=== PATIENT | female | born 1985 | race Caucasian/White ===

== ENCOUNTER 2017-01-03 12:38 | Inpatient (IN) | payer OTHER ==
[2017-01-03 13:04] VITALS: BMI 22.4
--- NOTE | 2017-01-03 14:42 | HP ---
CIWA Score - CIWA Score Nausea/Vomitin Muscle Tremors: 2 Anxiety: 3 Agitation: 3 Paroxysmal Sweats: 1-Minimal Palms Moist Orientation: 0-Oriented Tacttile Disturbances: 0-None Auditory Disturbances: 0-None Visual Disturbances: 3-Moderate Sensitivity Headache: 2-Mild CIWA-Ar Total Score: 17 Admission ROS S - HPI Chief Complaint: "My drinking and drugging have just spun out of control the last few days. I need to get my life back under control." Pt. is here to Detox from alcohol. Allergies/Adverse Reactions: Allergies Allergy/AdvReac Type Severity Reaction Status Date / Time No Known Allergies Allergy Verified 01/03/17 13:30 History of Present Illness: Pt. is a 31 YO female here to Detox from alcohol. This is pt.'s first Detox admission at [facility]. Pt.had a previous Detox admission at [facility] ( [facility] [place] and a Rehab admission at [facility] both earlier this year. Exam Limitations: No Limitations - Ebola screening Have you traveled outside of the country in the last 21 days: No Have you had contact with anyone from an Ebola affected area: No Have you been sick,other than usual withdrawal symptoms: No Do you have a fever: No - Review of Systems Constitutional: Loss of Appetite, Malaise, Night Sweats EENT: reports: Nose Congestion, Sinus Pressure Respiratory: reports: No Symptoms reported Cardiac: reports: Chest Pain (Patient was evaluated in [facility] ER last night for chest pain. Patient reports that cardiac abnormalities were found during ER evlaution. PATIENT DENIES CURRENT CHEST PAIN.) GI: reports: Diarrhea, Poor Appetite, Indigestion : reports: No Symptoms Reported Musculoskeletal: reports: No Symptoms Reported Integumentary: reports: No Symptoms Reported Neuro: reports: Tremors Endocrine: reports: No Symptoms Reported Hematology: reports: No Symptoms Reported Psychiatric: reports: Judgement Intact, Mood/Affect Appropiate, Orientated x3, Anxious, Depressed (In past, has had both medication and verbal therapy in past. No treatment currently.) Other Systems: Reviewed and Negative Patient History - Patient Medical History Hx Anemia: No Hx Asthma: No Hx Chronic Obstructive Pulmonary Disease (COPD): No Hx Cancer: No Hx Cardiac Disorders: No Hx Congestive Heart Failure: No Hx Hypertension: No Hx Hypercholesterolemia: No Hx Pacemaker: No HX Cerebrovascular Accident: No Hx Seizures: No Hx Dementia: No Hx Diabetes: No Hx Gastrointestinal Disorders: No Hx Liver Disease: No Hx Genitourinary Disorders: No Hx Sexually Transmitted Disorders: No Hx Renal Disease (ESRD): No Hx Thyroid Disease: No Hx Human Immunodeficiency Virus (HIV): No (Last Tested approx. 6 months ago: NEGATIVE.) Hx Hepatitis C: No (Last Tested approx. 6 months ago: NEGATIVE.) Hx Depression: Yes (Therapy, meds. in past, None currently.) Hx Suicide Attempt: No (PATIENT DENIES CURRENT SI / HI.) Hx Bipolar Disorder: No Hx Schizophrenia: No Other Medical History: DENIES. - Patient Surgical History Past Surgical History: No Hx Neurologic Surgery: No Hx Cataract Extraction: No Hx Cardiac Surgery: No Hx Lung Surgery: No Hx Breast Surgery: No Hx Breast Biopsy: No Hx Abdominal Surgery: No Hx Appendectomy: No Hx Cholecystectomy: No Hx Genitourinary Surgery: No Hx Section: No Hx Orthopedic Surgery: No Hx Hysterectomy: No Anesthesia Reaction: No - PPD History Previous Implant?: Yes Documented Results: Negative w/o proof Implanted On Prior R Admission?: No PPD to be Administered?: No - Reproductive History Patient is a Female of Child Bearing Age (11 -55 yrs old): Yes Last Menstrual Period: 12/27/16 Patient : No - Smoking Cessation Smoking history: Former smoker Have you smoked in the past 12 months: Yes Aproximately how many cigarettes per day: 1 If you are a former smoker, when did you quit?: 3 months ago Cigars Per Day: 0 Hx Chewing Tobacco Use: No Initiated information on smoking cessation: Yes 'Breaking Loose' booklet given: 01/03/17 (GIVEN ON UNIT. ) - Substance & Tx. History Hx Alcohol Use: Yes Hx Substance Use: Yes Substance Use Type: Alcohol, Cocaine Hx Substance Use Treatment: Yes (1 Previous Detox admission at [facility] , 1 Rehab admission, [place], [place].) - Substances Abused Alcohol Route: Oral Frequency: Daily Amount used: 1 QT BOURBON Age of first use: 17 Date of Last Use: 01/02/17 Cocaine Route: Inhalation Frequency: Daily Amount used: $200 Age of first use: 19 Date of Last Use: 01/03/17 Family Disease History - Family Disease History Family Disease History: Diabetes: Grandparent Admission Physical Exam [facility] - Vital Signs Vital Signs: Vital Signs - 24 hr 01/03/17 12:57 Temperature 98.7 F Pulse Rate 71 Respiratory 20 Rate Blood Pressure 130/77 - Physical General Appearance: Yes: No Apparent Distress, Nourished, Appropriately Dressed , Tremorous, Anxious HEENTM: Yes: Hearing grossly Normal, Normocephalic, Normal Voice, QASIM, Pharynx Normal Respiratory: Yes: Chest Non-Tender, Lungs Clear, No Respiratory Distress, No Accessory Muscle Use Neck: Yes: No masses,lesions,Nodules, Supple, Trachea in good position Breast: Yes: Breast Exam Deferred Cardiology: Yes: Regular Rhythm, Regular Rate, S1, S2 Abdominal: Yes: Normal Bowel Sounds, Non Tender, Flat, Soft Genitourinary: Yes: Within Normal Limits Back: Yes: Normal Inspection Musculoskeletal: Yes: full range of Motion, Gait Steady Extremities: Yes: Normal Range of Motion, Non-Tender, Tremors Neurological: Yes: Fully Oriented, Alert, Normal Mood/Affect, Normal Response Integumentary: Yes: Normal Color, Dry, Warm Lymphatic: Yes: Within Normal Limits - Diagnostic (1) Alcohol dependence with uncomplicated withdrawal Current Visit: Yes Status: Acute (2) Cocaine dependence, uncomplicated Current Visit: Yes Status: Acute (3) Nicotine dependence Current Visit: Yes Status: Chronic Qualifiers: Nicotine product type: cigarettes Substance use status: uncomplicated Qualified Code(s): F17.210 - Nicotine dependence, cigarettes, uncomplicated (4) History of depression Current Visit: Yes Status: Chronic Cleared for Admission [facility] - Detox or Rehab [facility] Level of Care: Medically Managed Detox Regimen/Protocol: Librium [facility] Breath Alcohol Content Breath Alcohol Content: 0 Urine Pregancy Test - Result Urine Test Results: Negative- NO Line Present Urine Drug Screen - Results Drug Screen Negative: No Urine Drug Screen Results: BLANCA-Cocaine
[2017-01-03] MEDS ORDERED: hydrOXYzine PAMOATE 50 MG CAPSULE (FP) PO PRN (15:36)
[2017-01-03] MEDS ORDERED: MAGNESIUM HYDROX 2400MG/30ML ORAL SUSPENSION 30 ML CUP PO PRN (15:36)
[2017-01-03] MEDS ORDERED: LOPERAMIDE HCL 2 MG CAPSULE PO PRN (15:36)
[2017-01-03] MEDS ORDERED: MENTHOL/PHENOL 1 EACH UD MM PRN (15:36)
[2017-01-03] MEDS ORDERED: P-EPHED 60MG/TRIPROLIDI 2.5MG TABLET PO PRN (15:36)
[2017-01-03] MEDS ORDERED: diphenhydrAMINE HCL 50 MG CAPSULE PO PRN (15:36)
[2017-01-03] MEDS ORDERED: MAGNESIUM CITRATE 300 ML BOTTLE PO PRN (15:36)
[2017-01-03] MEDS ORDERED: NICOTINE POLACRILEX 2 MG GUM BUC PRN (15:36)
[2017-01-03] MEDS ORDERED: chlordiazePOXIDE HCL 25 MG CAPSULE PO PRN (15:36)
[2017-01-03] MEDS ORDERED: MAG HYDROX/AL HYDROX/SIMETH 30 ML UNIT-DOSE CUP PO PRN (15:36)
[2017-01-03] MEDS ORDERED: IBUPROFEN 400 MG TABLET (FP) PO PRN (15:36)
[2017-01-03] MEDS ORDERED: guaiFENesin/D-METHORPHAN HB 10 ML UNIT-DOSE CUPS PO PRN (15:36)
[2017-01-03] MEDS ORDERED: ACETAMINOPHEN 325 MG TABLET (FP) PO PRN (15:36)
[2017-01-03] MEDS ORDERED: chlordiazePOXIDE HCL 25 MG CAPSULE PO ONE (15:47)
[2017-01-03] MEDS: chlordiazePOXIDE HCL 25 MG CAPSULE PO SCH ×2 (17:30→22:12)
[2017-01-03] MEDS: THIAMINE HCL 100 MG TABLET (FP) PO SCH (22:12)
[2017-01-03 22:40] LABS: URINE APPEARANCE CLEAR; URINE BILIRUBIN NEGATIVE (NEGATIVE); URINE BLOOD NEGATIVE (NEGATIVE); URINE COLOR YELLOW; URINE GLUCOSE (UA) NEGATIVE (NEGATIVE); URINE KETONE NEGATIVE (NEGATIVE); URINE LEUK ESTERASE NEGATIVE (NEGATIVE); URINE NITRITE NEGATIVE (NEGATIVE); URINE PROTEIN NEGATIVE (NEGATIVE); URINE UROBILINOGEN NEGATIVE mg/dL (0.2-1.0)
[2017-01-04] MEDS: chlordiazePOXIDE HCL 25 MG CAPSULE PO SCH ×4 (05:13→22:07)
--- NOTE | 2017-01-04 08:09 | CONSULT ---
[facility] Psychiatric Consult - Data Date of interview: 01/04/17 Admission source: [facility] Identifying data: This is 31 years old female with history of depression , with no history od psychiatric hospitalizations, iontoxicated with: Alcohol, Cocaine and Nicotine Substance Abuse History: - Smoking Cessation. Smoking history: Former smoker. Have you smoked in the past 12 months: Yes. Aproximately how many cigarettes per day: 1. If you are a former smoker, when did you quit?: 3 months ago. Cigars Per Day: 0. Hx Chewing Tobacco Use: No. Initiated information on smoking cessation: Yes. 'Breaking Loose' booklet given: 01/03/17 (GIVEN ON UNIT. ). - Substance & Tx. History. Hx Alcohol Use: Yes. Hx Substance Use: Yes. Substance Use Type: Alcohol, Cocaine. Hx Substance Use Treatment: Yes (1 Previous Detox admission at [facility], 1 Rehab admission, [place], [place] - Substances Abused. Alcohol. Route: Oral. Frequency: Daily. Amount used: 1 QT BOURBON. Age of first use: 17. Date of Last Use: 01/02/17. Cocaine. Route: Inhalation. Frequency: Daily. Amount used: $200. Age of first use: 19. Date of Last Use: 01/03/17 Medical History: Denies significant medical problem Psychiatric History: Elton reports history of Depression, reports taking prior to admission: Zoloft 100mg poqd. Gabapentin 300mg pop bid Physical/Sexual Abuse/Trauma History: Denies Additional Comment: Zoloft 100mg poqd. Gabapentin 300mg pop bid Mental Status Exam - Mental Status Exam Alert and Oriented to: Person Cognitive Function: Fair Patient Appearance: Unkempt Mood: Sad Affect: Flat Patient Behavior: Sedated Speech Pattern: Delayed Voice Loudness: Mildly Soft/Quiet Thought Process: Circumstantial Thought Disorder: Being Controlled Hallucinations: Denies Suicidal Ideation: Denies Homicidal Ideation: Denies Insight/Judgement: Fair Sleep: Difficulty falling asleep Appetite: Fair Muscle strength/Tone: Mild Hypotonicity Gait/Station: Shuffling Additional Comments: Zoloft 100mg poqd. Gabapentin 300mg pop bid Psychiatric Findings - Problem List ([place] 1, 2,3) (1) Alcohol dependence with uncomplicated withdrawal Current Visit: Yes Status: Acute (2) Cocaine dependence, uncomplicated Current Visit: Yes Status: Acute (3) History of depression Current Visit: Yes Status: Chronic (4) Nicotine dependence Current Visit: Yes Status: Chronic Qualifiers: Nicotine product type: cigarettes Substance use status: uncomplicated Qualified Code(s): F17.210 - Nicotine dependence, cigarettes, uncomplicated (5) Drug-induced mood disorder Current Visit: Yes Status: Acute - Initial Treatment Plan Initial Treatment Plan: Zoloft 100mg poqd. Gabapentin 300mg pop bid
--- NOTE | 2017-01-04 09:37 | EKG ---
Test Reason : Blood Pressure : / mmHG Vent. Rate : 056 BPM Atrial Rate : 056 BPM P-R Int : 158 ms QRS Dur : 092 ms QT Int : 444 ms P-R-T Axes : 070 068 046 degrees QTc Int : 428 ms SINUS BRADYCARDIA POSSIBLE LEFT ATRIAL ENLARGEMENT INCOMPLETE RIGHT BUNDLE BRANCH BLOCK BORDERLINE ECG NO PREVIOUS ECGS AVAILABLE Confirmed by RAKEL BENAVIDEZ MD ([id number]) on 01/04/2017 9:37:30 AM Referred By: Confirmed By:RAKEL BENAVIDEZ MD
[2017-01-04 09:42] LABS: MCH 31.3 pg (25.7-33.7); MCHC 33.2 g/dl (32.0-36.0); MEAN CELL VOLUME 94.4 fl (80-96); MEAN PLT VOLUME 8.6 fl (7.5-11.1); PLATELET COUNT 302 K/MM3 (134-434); RDW 13.7 % (11.6-15.6); WHITE BLOOD COUNT 5.7 K/mm3 (4.0-10.0)
[2017-01-04 09:52] LABS: ALK PHOS 79 U/L (45-117); ANION GAP 7 (8-16); BILIRUBIN,TOTAL 0.7 mg/dL (0.2-1.0); CO2 28 mmol/L (21-32); CREATININE 0.8 mg/dL (0.55-1.02); GLUCOSE,RANDOM 123 mg/dL (74-106); SGOT/AST 45 U/L (15-37); SGPT/ALT 67 U/L (12-78)
[2017-01-04] MEDS: PRENATAL VITAMINS W/ FOLIC ACID TABLET (FP) PO SCH (10:28)
[2017-01-04] MEDS: LORATADINE 10 MG TABLET PO SCH (10:28)
[2017-01-04] MEDS: SERTRALINE HCL 50 MG TABLET (FP) PO SCH (10:30)
[2017-01-04] MEDS: GABAPENTIN 300 MG CAPSULE (FP) PO SCH ×2 (10:30→22:07)
[2017-01-04] MEDS: THIAMINE HCL 100 MG TABLET (FP) PO SCH (22:07)
[2017-01-05] MEDS: chlordiazePOXIDE HCL 25 MG CAPSULE PO SCH ×2 (05:30→10:10)
--- NOTE | 2017-01-05 09:16 | PN ---
S CIWA - CIWA Score Nausea/Vomitin Muscle Tremors: 4-Moderate,w/Arms Extend Anxiety: 4-Mod. Anxious/Guarded Agitation: 4-Moderately Restless Paroxysmal Sweats: 3 Orientation: 0-Oriented Tacttile Disturbances: 1-Very Mild Itch/Numbness Auditory Disturbances: 0-None Visual Disturbances: 0-None Headache: 1-Very Mild CIWA-Ar Total Score: 20 BHS Progress Note (SOAP) Subjective: nausea, sweats, interrupted sleep, anxiety, tremors Objective: Vital Signs - 24 hr 01/04/17 01/04/17 01/04/17 10:00 14:07 18:10 Temperature 97.9 F 97.5 F L 98.1 F Pulse Rate 70 70 79 Respiratory 18 18 18 Rate Blood Pressure 99/52 109/67 101/65 01/04/17 01/05/17 01/05/17 23:00 00:30 03:30 Temperature 97.5 F L Pulse Rate 69 Respiratory 18 18 18 Rate Blood Pressure 100/53 01/05/17 06:40 Temperature 96.8 F L Pulse Rate 54 L Respiratory 16 Rate Blood Pressure 101/57 Laboratory Tests 01/03/17 01/04/17 01/04/17 21:15 06:00 06:00 WBC 5.7 RBC 4.00 Hgb 12.5 Hct 37.8 MCV 94.4 MCH 31.3 MCHC 33.2 RDW 13.7 Plt Count 302 MPV 8.6 Sodium 139 Potassium 4.3 Chloride 104 Carbon Dioxide 28 Anion Gap 7 L BUN 17 Creatinine 0.8 Creat Clearance w eGFR > 60 Random Glucose 123 H Calcium 9.0 Total Bilirubin 0.7 AST 45 H ALT 67 Alkaline Phosphatase 79 Total Protein 7.0 Albumin 4.0 Urine Color Yellow Urine Appearance Clear Urine pH 7.0 Ur Specific [place] 1.020 Urine Protein Negative Urine Glucose (UA) Negative Urine Ketones Negative Urine Blood Negative Urine Nitrite Negative Urine Bilirubin Negative Urine Urobilinogen Negative RPR Titer 01/04/17 06:00 WBC RBC Hgb Hct MCV MCH MCHC RDW Plt Count MPV Sodium Potassium Chloride Carbon Dioxide Anion Gap BUN Creatinine Creat Clearance w eGFR Random Glucose Calcium Total Bilirubin AST ALT Alkaline Phosphatase Total Protein Albumin Urine Color Urine Appearance Urine pH Ur Specific [place] Urine Protein Urine Glucose (UA) Urine Ketones Urine Blood Urine Nitrite Urine Bilirubin Urine Urobilinogen RPR Titer Nonreactive Assessment: withdrawal sx Plan: cont detox, fluids, encourage ambulation
--- NOTE | 2017-01-05 09:19 | PN ---
S CIWA - CIWA Score Nausea/Vomitin Muscle Tremors: 3 Anxiety: 4-Mod. Anxious/Guarded Agitation: 4-Moderately Restless Paroxysmal Sweats: 3 Orientation: 0-Oriented Tacttile Disturbances: 1-Very Mild Itch/Numbness Auditory Disturbances: 0-None Visual Disturbances: 0-None Headache: 1-Very Mild CIWA-Ar Total Score: 19 BHS Progress Note (SOAP) Subjective: nausea, sweats, interrupted sleep, anxiety, tremors Objective: 01/05/17 09:17 Vital Signs - 24 hr 01/04/17 01/04/17 01/04/17 10:00 14:07 18:10 Temperature 97.9 F 97.5 F L 98.1 F Pulse Rate 70 70 79 Respiratory 18 18 18 Rate Blood Pressure 99/52 109/67 101/65 01/04/17 01/05/17 01/05/17 23:00 00:30 03:30 Temperature 97.5 F L Pulse Rate 69 Respiratory 18 18 18 Rate Blood Pressure 100/53 01/05/17 06:40 Temperature 96.8 F L Pulse Rate 54 L Respiratory 16 Rate Blood Pressure 101/57 Laboratory Tests 01/03/17 01/04/17 01/04/17 21:15 06:00 06:00 WBC 5.7 RBC 4.00 Hgb 12.5 Hct 37.8 MCV 94.4 MCH 31.3 MCHC 33.2 RDW 13.7 Plt Count 302 MPV 8.6 Sodium 139 Potassium 4.3 Chloride 104 Carbon Dioxide 28 Anion Gap 7 L BUN 17 Creatinine 0.8 Creat Clearance w eGFR > 60 Random Glucose 123 H Calcium 9.0 Total Bilirubin 0.7 AST 45 H ALT 67 Alkaline Phosphatase 79 Total Protein 7.0 Albumin 4.0 Urine Color Yellow Urine Appearance Clear Urine pH 7.0 Ur Specific [place] 1.020 Urine Protein Negative Urine Glucose (UA) Negative Urine Ketones Negative Urine Blood Negative Urine Nitrite Negative Urine Bilirubin Negative Urine Urobilinogen Negative RPR Titer 01/04/17 06:00 WBC RBC Hgb Hct MCV MCH MCHC RDW Plt Count MPV Sodium Potassium Chloride Carbon Dioxide Anion Gap BUN Creatinine Creat Clearance w eGFR Random Glucose Calcium Total Bilirubin AST ALT Alkaline Phosphatase Total Protein Albumin Urine Color Urine Appearance Urine pH Ur Specific [place] Urine Protein Urine Glucose (UA) Urine Ketones Urine Blood Urine Nitrite Urine Bilirubin Urine Urobilinogen RPR Titer Nonreactive Assessment: 01/05/17 09:18 withdrawals Plan: cont detox, fluids, encourage ambulation
[2017-01-05] MEDS: PRENATAL VITAMINS W/ FOLIC ACID TABLET (FP) PO SCH (10:10)
[2017-01-05] MEDS: SERTRALINE HCL 50 MG TABLET (FP) PO SCH (10:11)
[2017-01-05] MEDS: LORATADINE 10 MG TABLET PO SCH (10:11)
[2017-01-05] MEDS: GABAPENTIN 300 MG CAPSULE (FP) PO SCH ×2 (10:11→22:07)
[2017-01-05] MEDS: chlordiazePOXIDE 5 MG CAPSULE PO SCH ×2 (18:39→22:07)
[2017-01-05] MEDS: THIAMINE HCL 100 MG TABLET (FP) PO SCH (22:07)
[2017-01-06] MEDS: chlordiazePOXIDE 5 MG CAPSULE PO SCH ×2 (05:10→10:10)
[2017-01-06] MEDS ORDERED: IBUPROFEN 600 MG TABLET (FP) PO PRN (09:22)
--- NOTE | 2017-01-06 09:51 | PN ---
BHS Progress Note (SOAP) Subjective: nausa, sweats, interrupted sleep, anxiety, tremors Objective: 01/06/17 09:52 Vital Signs - 8 hr 01/06/17 01/06/17 01/06/17 03:30 06:00 09:30 Temperature 97.5 F L 97.9 F Pulse Rate 57 L 102 H Respiratory 18 16 18 Rate Blood Pressure 106/58 100/51 Laboratory Tests 01/03/17 01/04/17 01/04/17 21:15 06:00 06:00 WBC 5.7 RBC 4.00 Hgb 12.5 Hct 37.8 MCV 94.4 MCH 31.3 MCHC 33.2 RDW 13.7 Plt Count 302 MPV 8.6 Sodium 139 Potassium 4.3 Chloride 104 Carbon Dioxide 28 Anion Gap 7 L BUN 17 Creatinine 0.8 Creat Clearance w eGFR > 60 Random Glucose 123 H Calcium 9.0 Total Bilirubin 0.7 AST 45 H ALT 67 Alkaline Phosphatase 79 Total Protein 7.0 Albumin 4.0 Urine Color Yellow Urine Appearance Clear Urine pH 7.0 Ur Specific [place] 1.020 Urine Protein Negative Urine Glucose (UA) Negative Urine Ketones Negative Urine Blood Negative Urine Nitrite Negative Urine Bilirubin Negative Urine Urobilinogen Negative RPR Titer 01/04/17 06:00 WBC RBC Hgb Hct MCV MCH MCHC RDW Plt Count MPV Sodium Potassium Chloride Carbon Dioxide Anion Gap BUN Creatinine Creat Clearance w eGFR Random Glucose Calcium Total Bilirubin AST ALT Alkaline Phosphatase Total Protein Albumin Urine Color Urine Appearance Urine pH Ur Specific [place] Urine Protein Urine Glucose (UA) Urine Ketones Urine Blood Urine Nitrite Urine Bilirubin Urine Urobilinogen RPR Titer Nonreactive Assessment: 01/06/17 09:52 withdrawal sx Plan: cont detox, fluids, encourage ambulation
[2017-01-06] MEDS: PRENATAL VITAMINS W/ FOLIC ACID TABLET (FP) PO SCH (10:10)
[2017-01-06] MEDS: GABAPENTIN 300 MG CAPSULE (FP) PO SCH ×2 (10:10→22:20)
[2017-01-06] MEDS: LORATADINE 10 MG TABLET PO SCH (10:10)
[2017-01-06] MEDS: SERTRALINE HCL 50 MG TABLET (FP) PO SCH (10:10)
[2017-01-06] MEDS: DOCUSATE SODIUM 100 MG CAPSULE (FP) PO SCH ×2 (14:00→22:20)
[2017-01-06] MEDS: chlordiazePOXIDE HCL 10 MG CAPSULE PO SCH ×2 (17:49→22:20)
[2017-01-06] MEDS: THIAMINE HCL 100 MG TABLET (FP) PO SCH (22:20)
[2017-01-07] MEDS: DOCUSATE SODIUM 100 MG CAPSULE (FP) PO SCH (06:05)
[2017-01-07] MEDS: chlordiazePOXIDE HCL 10 MG CAPSULE PO SCH (06:05)
[2017-01-07] MEDS: GABAPENTIN 300 MG CAPSULE (FP) PO SCH (09:55)
[2017-01-07] MEDS: LORATADINE 10 MG TABLET PO SCH (09:55)
[2017-01-07] MEDS: PRENATAL VITAMINS W/ FOLIC ACID TABLET (FP) PO SCH (09:55)
[2017-01-07] MEDS: SERTRALINE HCL 50 MG TABLET (FP) PO SCH (09:55)
[2017-01-07 10:49] VITALS: BP 107/58; PULSE 98; TEMP 97.5
--- NOTE | 2017-01-07 11:09 | DS ---
[facility] Detox Discharge Summary Admission Date: 01/03/17 Discharge Date: 01/07/17 - History Present History: Alcohol Dependence, Cocaine Dependence Pertinent Past History: Depression - Physical Exam Results Vital Signs: Vital Signs Temperature 97.5 F L 01/07/17 10:48 Pulse Rate 98 H 01/07/17 10:48 Respiratory Rate 18 01/07/17 10:48 Blood Pressure 107/58 01/07/17 10:48 O2 Sat by Pulse Oximetry (%) Pertinent Admission Physical Exam Findings: withdrawal sx Laboratory Last Values WBC 5.7 K/mm3 (4.0-10.0) 01/04/17 06:00 RBC 4.00 M/mm3 (3.60-5.2) 01/04/17 06:00 Hgb 12.5 GM/dL (10.7-15.3) 01/04/17 06:00 Hct 37.8 % (32.4-45.2) 01/04/17 06:00 MCV 94.4 fl (80-96) 01/04/17 06:00 MCH 31.3 pg (25.7-33.7) 01/04/17 06:00 MCHC 33.2 g/dl (32.0-36.0) 01/04/17 06:00 RDW 13.7 % (11.6-15.6) 01/04/17 06:00 Plt Count 302 K/MM3 (134-434) 01/04/17 06:00 MPV 8.6 fl (7.5-11.1) 01/04/17 06:00 Sodium 139 mmol/L (136-145) 01/04/17 06:00 Potassium 4.3 mmol/L (3.5-5.1) 01/04/17 06:00 Chloride 104 mmol/L (98-107) 01/04/17 06:00 Carbon Dioxide 28 mmol/L (21-32) 01/04/17 06:00 Anion Gap 7 (8-16) L 01/04/17 06:00 BUN 17 mg/dL (7-18) 01/04/17 06:00 Creatinine 0.8 mg/dL (0.55-1.02) 01/04/17 06:00 Creat Clearance w eGFR > 60 (>60) 01/04/17 06:00 Random Glucose 123 mg/dL (74-106) H 01/04/17 06:00 Calcium 9.0 mg/dL (8.5-10.1) 01/04/17 06:00 Total Bilirubin 0.7 mg/dL (0.2-1.0) 01/04/17 06:00 AST 45 U/L (15-37) H 01/04/17 06:00 ALT 67 U/L (12-78) 01/04/17 06:00 Alkaline Phosphatase 79 U/L (45-117) 01/04/17 06:00 Total Protein 7.0 g/dl (6.4-8.2) 01/04/17 06:00 Albumin 4.0 g/dl (3.4-5.0) 01/04/17 06:00 Urine Color Yellow 01/03/17 21:15 Urine Appearance Clear 01/03/17 21:15 Urine pH 7.0 (5.0-8.0) 01/03/17 21:15 Ur Specific [place] 1.020 (1.005-1.025) 01/03/17 21:15 Urine Protein Negative (NEGATIVE) 01/03/17 21:15 Urine Glucose (UA) Negative (NEGATIVE) 01/03/17 21:15 Urine Ketones Negative (NEGATIVE) 01/03/17 21:15 Urine Blood Negative (NEGATIVE) 01/03/17 21:15 Urine Nitrite Negative (NEGATIVE) 01/03/17 21:15 Urine Bilirubin Negative (NEGATIVE) 01/03/17 21:15 Urine Urobilinogen Negative mg/dL (0.2-1.0) 01/03/17 21:15 RPR Titer Nonreactive (NONREACTIVE) 01/04/17 06:00 Labs noted - Treatment Hospital Course: Detox Protocol Followed, Detoxed Safely, Responded well, Discharged Condition Good - Medication Discharge Medications: Ambulatory Orders Gabapentin [Neurontin -] 300 mg PO BID 01/03/17 Loratadine [Claritin -] 10 mg PO DAILY 01/03/17 Naltrexone Microspheres [Vivitrol] 380 mg IM MONTHLY 01/03/17 Sertraline HCl [Zoloft -] 100 mg PO DAILY 01/03/17 Gabapentin [Neurontin -] 300 mg PO BID #60 cap 01/04/17 Sertraline HCl [Zoloft -] 100 mg PO DAILY #30 tablet 01/04/17 - Diagnosis (1) Alcohol dependence with uncomplicated withdrawal Current Visit: Yes Status: Acute (2) Cocaine dependence, uncomplicated Current Visit: Yes Status: Acute (3) Drug-induced mood disorder Current Visit: Yes Status: Acute (4) Nicotine dependence Current Visit: Yes Status: Chronic Qualifiers: Nicotine product type: cigarettes Substance use status: uncomplicated Qualified Code(s): F17.210 - Nicotine dependence, cigarettes, uncomplicated - AMA Did Patient Leave Against Medical Advice: No
== END 2017-01-07 11:40 | disposition home or self-care (01) | DRG 774 ==
LOC: YASAS 12:38 → Y6N 15:35
PROVIDERS: ADMIT Internal Medicine; ATTEND Internal Medicine Addiction Medicine
PROC: HZ2ZZZZ Detoxification Services for Substance Abuse Treatment (ICD-10-PCS; principal; 2017-01-03)
DX: F10.230 Alcohol dependence with withdrawal, uncomplicated (principal); F14.20 Cocaine dependence, uncomplicated; F17.210 Nicotine dependence, cigarettes, uncomplicated; F32.9 Major depressive disorder, single episode, unspecified; F19.24 Other psychoactive substance dependence with psychoactive substance-induced mood disorder
CPT/HCPCS: 36415; 80053; 81003; 85027; 86593; 93005; 93010